=== PATIENT | male | born 1995 | race Caucasian/White ===

== ENCOUNTER 2022-10-12 08:01 | Emergency (ER) | payer OTHER, BC, SELFPAY ==
[2022-10-12 08:12] VITALS: BP 120/76; PULSE 52; RESP 16; TEMP 36.2; O2SAT 100; BMI 33.5
--- NOTE | 2022-10-12 08:32 | CRLHL7_ITS ---
For Patients: As a result of the Century Cures Act, medical imaging exams and procedure reports are released immediately into your electronic medical record. You may view this report before your referring provider. If you have questions, please contact your health care provider. Indication: Left shoulder pain. Technique: Left shoulder 3 views. Comparison: None. Findings: Bones: Alignment is normal. No fractures or bone lesions. Joint spaces: Unremarkable. Soft tissues: Unremarkable. Impression: Unremarkable left shoulder. No specific finding to explain pain. Dictated by Paxton Orozco MD @ 10/12/2022 9:20:24 AM (Electronically Signed)
--- NOTE | 2022-10-12 08:33 | ED.UPPEXIN ---
HPI - Extremity Injury (Upper) General Chief Complaint: Extremity Pain/Injury, Upper Stated Complaint: Sharp pain L shoulder Time Seen by Provider: 10/12/22 08:10 History of Present Illness HPI narrative: This 26-year-old male comes in reporting pain in his left shoulder region. He was pushing a heavy cart and had sudden onset of pain in the scapular region of his left shoulder. The pain was severe and he became lightheaded and had brief loss of consciousness. He did not hit his head or fall but he did bite his tongue. He has normal range of motion of his left upper extremity. The pain has dissipated in his scapular region. Related Data Previous Rx's Medication Instructions Recorded cyclobenzaprine 10 mg tablet 10 mg PO TID #10 tabs 10/12/22 ketorolac 10 mg tablet 10 mg PO Q8H 5 days #15 tabs 10/12/22 Allergies Allergy/AdvReac Type Severity Reaction Status Date / Time No Known Drug Allergies Allergy Verified 10/12/22 08:12 Review of Systems Status of ROS: Reports: 10 or more systems reviewed and unremarkable except as noted in History and below Narrative: Constitutional: No fevers, no weight gain or loss. Eyes: No discharge. No vision changes. HENT: No congestion, no sore throat, no ear pain. Cardiovascular: No chest pain, no palpitations. Respiratory: No shortness of breath, no wheezes, no cough. Gastrointestinal: No abdominal pain, no vomiting, no diarrhea. Genitourinary: No dysuria, no hematuria. Musculoskeletal: Normal range of motion. Skin: No rashes, no pruritis. Neurological: No dizziness, weakness, sensory change, speech change. Endo/Heme/Allergies: No bruising or bleeding. No polydipsia. Pysch: no suicidality, no anxiety, no insomnia. All other systems reviewed and are negative. PFSH PFSH Social History Smoking Status: Never smoker Do you use any of these nicotine containing products: None Second hand tobacco smoke exposure: No How often do you have a drink containing alcohol: monthly or less How many standard drinks containing alcohol do you have on a typical day: 5 or 6 How often do you have six or more drinks on one occasion: Less than monthly AUDIT-C Alcohol total score: 4 Non-prescribed substance use: denies use service: No Exam Narrative: Exam Narrative: Constitutional: Well-developed, well-nourished, no acute distress. HEENT: Normocephalic, atraumatic. Neck: Normal range of motion. Nontender. Supple. Heart: Intact distal pulses. Lungs: No chest discomfort. No wheezes, rhonchi, or rales. Abdomen: Nontender. Back: Normal range of motion. Mild tenderness when palpating in the left scapula area. Extremities: Normal range of motion. No injury. No sign of deformity. Skin: Intact. No rash. Warm. No erythema or pallor. Neurologic: No altered sensation. No weakness. Alert and oriented. Psychiatric: No suicidality. No anxiety or depression. No insomnia. Nursing notes and vitals signs are reviewed. Const: Vital Signs, click to edit/add: Vital Signs - 24 hr 10/12/22 08:12 Temperature 97.1 F L Pulse Rate [Pulse Oximeter] 52 L Respiratory Rate 16 Blood Pressure [Ri ght Upper Arm] 120/76 Pulse Oximetry 100 Oxygen Delivery Me thod Room Air Course Vital Signs Vital signs: Initial Vital Signs Temperature 97.1 F L 10/12/22 08:12 Temperature Source Temporal Artery Scan 10/12/22 08:12 Pulse Rate 52 L 10/12/22 08:12 Pulse Rhythm Regular 10/12/22 08:12 Respiratory Rate 16 10/12/22 08:12 Blood Pressure 120/76 10/12/22 08:12 Blood Pressure Mean 90 10/12/22 08:12 Blood Pressure Position Sitting 10/12/22 08:12 Pulse Oximetry 100 10/12/22 08:12 Oxygen Delivery Method Room Air 10/12/22 08:12 Vital Signs Temperature 97.1 F L 10/12/22 08:12 Pulse Rate 52 L 10/12/22 08:12 Respiratory Rate 16 10/12/22 08:12 Blood Pressure 120/76 10/12/22 08:12 Pulse Oximetry 100 10/12/22 08:12 Oxygen Delivery Method Room Air 10/12/22 08:12 Temperature 97.1 F L 10/12/22 08:12 Pulse Rate 52 L 10/12/22 08:12 Respiratory Rate 16 10/12/22 08:12 Blood Pressure 120/76 10/12/22 08:12 Pulse Oximetry 100 10/12/22 08:12 Oxygen Delivery Method Room Air 10/12/22 08:12 MDM - Extremity Injury (Upper) MDM Narrative Medical decision making narrative: This patient had sudden sharp pain in his left scapular region when pushing something earlier today. This pain has dissipated significantly. He did have brief loss of consciousness afterwards and did not have any injury in that regard except he states that he bit his tongue. His tongue appears normal with no sign of laceration or other injury. X-ray imaging of the left shoulder also shows no acute findings by my review. The patient is okay to be discharged home and encouraged to increase activity as tolerated. He did receive prescriptions for Toradol and Flexeril. Imaging Data XR L Shoulder: My impression: X-ray of the left shoulder by my review with radiology report pending shows no sign of fracture or dislocation. Discharge Plan Discharge Clinical Impression: Muscle strain Patient Disposition: Home, Self-Care Condition: Stable Additional Instructions: Take medication as prescribed. Activity is encouraged as tolerated. Follow up with MD as needed or return if worsening. Prescriptions: New cyclobenzaprine 10 mg tablet 10 mg PO TID Qty: 10 0RF ketorolac 10 mg tablet 10 mg PO Q8H 5 Days Qty: 15 0RF Follow Up/Referrals: Provider,Not a Local [Primary Care Provider] - Stand Alone Forms: [employer] Info Instructions
--- NOTE | 2022-10-12 09:33 | ED.NURSE ---
Provider note written for okay to return to work.
== END 2022-10-12 09:36 | disposition home or self-care (01) ==
PROVIDERS: Emergency Provider Emergency Medicine Emergency Medical Services
DX: S46.912A Strain of unspecified muscle, fascia and tendon at shoulder and upper arm level, left arm, initial encounter (principal); X50.0XXA Overexertion from strenuous movement or load, initial encounter
CPT/HCPCS: 73030; 99283; 99284